=== PATIENT | female | born 1940 | race Caucasian/White ===

== ENCOUNTER 2017-12-26 19:07 | Inpatient (IN) | payer OTHER, MEDICARE ==
[~2017-12-26] VITALS: Ht 160 cm; Wt 72.6 kg
[~2017-12-26 19:07] MED LIST: ASCO-339 PO; CYM30 PO; DOCU-144 PO; FERR-57 PO; LEVO100T PO; LYR25 PO; METF-509 PO; METO-290 PO; NEBI5TAB3 PO; OLME40TA13 PO; OMEG500C3 PO; TYC3 PO
[2017-12-26 19:16] VITALS: BP_SYST 140
[2017-12-26] MEDS ORDERED: NACL 0.9% 1,000 ML IV ONE (19:42)
[2017-12-26 20:09] LABS: BILIRUBIN,URINE NEGATIVE (NEGATIVE); CLARITY/URINE CLEAR (CLEAR); COLOR,URINE YELLOW (YELLOW); GLUCOSE,URINE NEGATIVE (NEGATIVE); KETONES,URINE NEGATIVE (NEGATIVE); LEUKOCYTE ESTERASE ,URINE NEGATIVE (NEGATIVE); NITRITE, URINE NEGATIVE (NEGATIVE); PH,URINE 6.5 (5.0-8.0); PROTEIN URINE NEGATIVE (NEGATIVE); UROBILINOGEN,URINE 0.2 (0.2-1.0)
[2017-12-26] MEDS ORDERED: LORazepam 2 MG/ML VIAL (FOR ER USE) IVP ONE (20:15)
[2017-12-26] MEDS ORDERED: DIPHENHYDRAMINE INJ 50 MG/ML VIAL IVP ONE (20:15)
[2017-12-26 20:18] LABS: BLOOD, URINE TRACE (NEGATIVE)
[2017-12-26 20:20] LABS: BACTERIA,URINE None Seen /HPF (None Seen); RBC,URINE NONE SEEN /HPF (0-3); WBC,URINE 0-3 /HPF (0-3)
[2017-12-26 20:21] LABS: MUCUS,URINE None Seen /LPF (None Seen)
[2017-12-26 20:24] LABS: BARBITURATE, URINE NEGATIVE (NEG <=200); URINE AMPHETAMINE NEGATIVE (NEG <=500)
[2017-12-26 20:25] LABS: BENZODIAZEPINE, URINE NEGATIVE (NEG <=150); CANNABINOID, URINE NEGATIVE (NEG <=50); COCAINE, URINE NEGATIVE (NEG <=150); METHAMPHETAMINES SCREEN,URINE NEGATIVE (NEG <=500); OPIATE, URINE NEGATIVE (NEG <=100); PHENCYCLIDINE SCREEN,URINE NEGATIVE (NEG <=25); UR TRICYCLIC ANTIDEPRESSANTS NEGATIVE (NEG <=300); URINE METHADONE NEGATIVE (NEG <=200); URINE OXYCODONE SCREEN NEGATIVE (NEG <=100); URINE PROPOXYPHENE SCREEN NEGATIVE (NEG <=300)
[2017-12-26 20:46] LABS: ANION GAP 10 (5-15); CALCIUM 8.8 mg/dL (8.4-11.0); CHLORIDE 104 mmol/L (98-107); CREATININE 0.95 mg/dL (0.55-1.30); GLUCOSE 155 mg/dL (70-99); POTASSIUM 4.4 mmol/L (3.5-5.1); SODIUM SERUM 139 mmol/L (136-145); UREA NITROGEN, BLOOD 23 mg/dL (8-21)
[2017-12-26 20:47] LABS: HEMATOCRIT 37.1 % (36-48); HEMOGLOBIN 12.1 g/dL (12.0-16.0); MEAN CORPUSCULAR HEMOGLOBIN 28 pg (27-31); MEAN CORPUSCULAR HGB CONC 33 % (32-36); MEAN CORPUSCULAR VOLUME 86 fL (79.0-98.0); RED BLOOD CELL COUNT(AUTO) 4.32 MIL/uL (4.2-6.2); RED CELL DISTRIBUTION WIDTH 15.7 % (9.0-15.0); WHITE BLOOD COUNT (AUTO) 6.1 K/uL (4.8-10.8)
[2017-12-26 20:52] LABS: ALANINE AMINOTRANSFERASE 24 U/L (12-78); ALBUMIN 3.5 g/dL (3.4-4.8); ALCOHOL, BLOOD < 3 mg/dL (<10); AMYLASE 64 U/L (0-100); ASPARTATE AMINOTRANSFERASE 20 U/L (10-37); LIPASE 183 U/L (73-393); TOTAL BILIRUBIN 0.3 mg/dL (0.0-1.0)
[2017-12-26 21:00] LABS: PLATELET COUNT (AUTO) 300 K/uL (130-430)
[2017-12-26 21:01] LABS: BAND % (MANUAL) 0 % (0-6); BASOPHILS % (MANUAL) 0 % (0-2); EOSINOPHILS % (MANUAL) 2 % (0-7); LYMPHOCYTES % (MANUAL) 26 % (20-46); MONOCYTES % (MANUAL) 7 % (0-11)
[2017-12-26 21:42] LABS: PROTHROMBIN TIME 10.3 SECS (9.5-12.5)
[2017-12-26] MEDS ORDERED: CHOL100062 PO (21:49)
[2017-12-26] MEDS ORDERED: BIOT25007 PO (21:49)
[2017-12-26] MEDS ORDERED: OXYC-130 PO (21:49)
[2017-12-26] MEDS ORDERED: HYDR-4100 PO (21:54)
[2017-12-26] MEDS ORDERED: GARL200T PO (21:54)
[2017-12-26] MEDS ORDERED: CELE200C PO (21:54)
[2017-12-26] MEDS ORDERED: MV I PO (21:54)
[2017-12-26] MEDS ORDERED: MECL12.584 PO (21:54)
[2017-12-26] MEDS ORDERED: UBID50TA3 PO (21:54)
[2017-12-26] MEDS ORDERED: CYCL-10 PO (21:54)
[2017-12-26] MEDS ORDERED: INSULIN REGULAR, HUMAN 100 UNITS/ML, 10 ML VIAL (novoLIN R) SUBCUT PRN (22:30)
[2017-12-26 22:54] VITALS: BP_SYST 119
[2017-12-27] VITALS: BP_SYST 119
[2017-12-27] MEDS ORDERED: IPRATROPIUM/ALBUTEROL SULFATE 3 ML AMPUL.NEB INH PRN (06:00)
[2017-12-27] MEDS ORDERED: ACETAMINOPHEN/CODEINE 300 MG-30 MG TABLET PO PRN ×2 (06:00→08:45)
[2017-12-27 06:54] VITALS: BP_SYST 119
[2017-12-27 08:10] VITALS: BP_SYST 136
[2017-12-27] MEDS ORDERED: KCL 20 mEq in 0.45% NS 1000 mL 1,000 ML IV SCH (08:45)
[2017-12-27] MEDS ORDERED: KETOROLAC TROMETHAMINE 15 MG VIAL IVP PRN (08:45)
[2017-12-27] MEDS ORDERED: HYDROcodone/ACETAMIN 10-325 MG TAB PO PRN (08:45)
[2017-12-27] MEDS ORDERED: MILK OF MAGNESIA 30 ML UDC PO PRN (08:45)
[2017-12-27] MEDS ORDERED: OXYCODONE/ACETAMINOPHEN 5-325 TABLET PO PRN (08:45)
[2017-12-27] MEDS ORDERED: FERROUS SULFATE 325 MG TABLET.DR PO SCH (09:00)
[2017-12-27] MEDS ORDERED: ASCORBIC ACID 500 MG TABLET PO SCH (09:00)
[2017-12-27] MEDS ORDERED: LOSARTAN POTASSIUM 50 MG TABLET (COZAAR) PO SCH (09:00)
[2017-12-27] MEDS ORDERED: PREGABALIN 25 MG CAPSULE (LYRICA) PO SCH (09:00)
[2017-12-27] MEDS ORDERED: NEBIVOLOL HCL 5 MG TABLET PO SCH (09:00)
[2017-12-27 12:47] VITALS: BP_SYST 133
[2017-12-27] MEDS ORDERED: DIPHENHYDRAMINE INJ 50 MG/ML VIAL IVP ONE (15:00)
[2017-12-27] MEDS ORDERED: ENOXAPARIN SODIUM 40 MG/0.4 ML SYRINGE SUBCUT SCH (21:00)
[2017-12-27] MEDS ORDERED: CYCLOBENZAPRINE HCL 10 MG TABLET (FLEXERIL) PO SCH (21:00)
[2017-12-28] MEDS ORDERED: CELECOXIB 200 MG CAPSULE PO SCH (09:00)
== END 2017-12-27 16:05 | disposition left against medical advice (07) | DRG 69 ==
LOC: SED 19:07 → STU 22:29
PROVIDERS: ADMIT Family Medicine; ATTEND Family Medicine
DX: G45.9 Transient cerebral ischemic attack, unspecified (principal); E11.9 Type 2 diabetes mellitus without complications; G24.01 Drug induced subacute dyskinesia; I10 Essential (primary) hypertension; K21.9 Gastro-esophageal reflux disease without esophagitis; Z53.21 Procedure and treatment not carried out due to patient leaving prior to being seen by health care provider; M19.90 Unspecified osteoarthritis, unspecified site; Z88.3 Allergy status to other anti-infective agents; Z91.041 Radiographic dye allergy status; Z88.5 Allergy status to narcotic agent; Z88.8 Allergy status to other drugs, medicaments and biological substances
CPT/HCPCS: 36415; 70450-TC; 71045; 80053; 80307; 81000-TC; 82150-TC; 82550-TC; 82962; 83690-TC; 84484; 85007; 85027; 85610-TC; 85730-TC; 92610-GN; 93005; 93880; 94640; 96361; 96374; 99285; G0482; J1200; J1815; J1885; J2060; J3480; J7620

== ENCOUNTER 2020-10-20 16:13 | Emergency (ER) | payer OTHER, BC ==
[~2020-10-20] VITALS: Ht 167.6 cm; Wt 72.6 kg
[~2020-10-20 16:13] MED LIST changes: +BIOT25008 PO; +CELE200C PO; +CHOL100062 PO; +CYCL-10 PO; -CYM30 PO; -DOCU-144 PO; +GARL200T PO; +HYDR-3927 PO; -LEVO100T PO; -METF-509 PO; +METF-834 PO; -METO-290 PO; +MV I PO; +OLME40TA12 PO; -OLME40TA13 PO; +OXYC-130 PO; +UBID50TA3 PO; +[UNRECOGNIZED DRUG - CODE] PO
[2020-10-20 16:28] VITALS: BP_SYST 154
[2020-10-20 17:34] LABS: BASOPHILS % (AUTO) 0.8 % (0.0-2.0); EOSINOPHILS # (AUTO) 0.2 K/uL (0.0-0.4); EOSINOPHILS % (AUTO) 2.7 % (0.0-4.0); HEMATOCRIT 35.1 % (36-48); HEMOGLOBIN 11.4 g/dL (12.0-16.0); LYMPHOCYTES # (AUTO) 1.7 K/uL (1.0-5.5); MEAN CORPUSCULAR HEMOGLOBIN 26 pg (27-31); MEAN CORPUSCULAR HGB CONC 32 % (32-36); MEAN CORPUSCULAR VOLUME 81 fL (79.0-98.0); MONOCYTES # (AUTO) 0.5 K/uL (0.0-1.0); MONOCYTES % (AUTO) 9.3 % (1.7-9.3); NEUTROPHILS # (AUTO) 3.3 K/uL (1.8-7.7); NEUTROPHILS % (AUTO) 57.2 % (40.0-70.0); PLATELET COUNT (AUTO) 219 K/uL (130-430); RED BLOOD CELL COUNT(AUTO) 4.35 MIL/uL (4.2-6.2); RED CELL DISTRIBUTION WIDTH 19.3 % (9.0-15.0); WHITE BLOOD COUNT (AUTO) 5.7 K/uL (4.8-10.8)
[2020-10-20 17:57] LABS: PROTHROMBIN TIME 10.2 SECS (9.5-12.5)
[2020-10-20 17:59] LABS: ANION GAP 7 (5-15); CALCIUM 8.6 mg/dL (8.4-11.0); CHLORIDE 106 mmol/L (98-107); CREATININE 0.89 mg/dL (0.55-1.30); GLUCOSE 149 mg/dL (70-99); POTASSIUM 3.6 mmol/L (3.5-5.1); SODIUM SERUM 140 mmol/L (136-145); UREA NITROGEN, BLOOD 21 mg/dL (8-21)
[2020-10-20 18:12] LABS: ALANINE AMINOTRANSFERASE 20 U/L (12-78); ALBUMIN 3.2 g/dL (3.4-4.8); ASPARTATE AMINOTRANSFERASE 13 U/L (10-37); TOTAL BILIRUBIN 0.3 mg/dL (0.0-1.0)
[2020-10-20 18:40] VITALS: BP_SYST 136
== END 2020-10-20 18:40 | disposition home or self-care (01) ==
LOC: SED 16:13
DX: J98.01 Acute bronchospasm (principal); I10 Essential (primary) hypertension; E11.9 Type 2 diabetes mellitus without complications; Z79.899 Other long term (current) drug therapy; Z88.1 Allergy status to other antibiotic agents; Z88.5 Allergy status to narcotic agent; Z88.6 Allergy status to analgesic agent; Z88.8 Allergy status to other drugs, medicaments and biological substances
CPT/HCPCS: 36415; 71045; 74220-TC; 80053; 83880; 84484; 85025; 85610-TC; 85730-TC; 93005; 99285